=== PATIENT | female | born 1970 | race Caucasian/White ===

== ENCOUNTER 2020-08-06 09:54 | Emergency (ER) | payer OTHER ==
[2020-08-06] MEDS ORDERED: MORPHINE SULFATE 4 MG INJ IV ONE (10:21)
[2020-08-06] MEDS ORDERED: Sodium Chloride 0.9% 1000 ML 1,000 ML IV STA (10:21)
[2020-08-06] MEDS ORDERED: Zofran 4 MG/2 ML VIAL IV ONE (10:21)
[2020-08-06] MEDS ORDERED: MORPHINE SULFATE 4 MG INJ ONE (10:28)
[2020-08-06] MEDS ORDERED: Zofran 4 MG/2 ML VIAL ONE (10:28)
[2020-08-06] MEDS ORDERED: Sodium Chloride 0.9% 1000 ML 1,000 ML ONE (10:28)
--- NOTE | 2020-08-06 10:28 | ERPHSYRPT ---
- History of Present Illness Time Seen by Provider: 08/06/20 09:57 Historian: patient Exam Limitations: no limitations Patient Subjective Stated Complaint: pt here for not feeling well, she was dx with UTI last monday and was given rocephin and cipro, she has had 4 doses of cipro, she states vomiting off and on since monday, with some lose stools since starting antiboitcs Triage Nursing Assessment: pt alert, resp easy, pt moaning, skin w/d/p. face mask in place, states abd tender, she is able to keep some fluids down Physician History: 49 years old female presented in the ER with chief complaint of left flank and low back pain almost a week ago, was evaluated outpatient with a positive urinalysis for UTI, was given Rocephin shot and started on Cipro. Patient report for the last 3 to 4 days she is having increasing pain across low back with associated multiple episodes of nonprojectile, nonbilious vomiting with no hematemesis and also loose stool which she attributes to warts use of ciprofloxacin. Patient also have low-grade fever with a T-max of 101 last night with chills. Denies any history of kidney stones or pyelonephritis in the past. No vaginal bleeding or discharge. No history of recurrent UTIs. Because of gastroenteritis symptoms feels fatigued tired and dehydrated. Timing/Duration: week(s) (1), constant, gradual onset, worse Activities at Onset: rest Quality: cramping, sharpness Abdominal Pain Onset Location: suprapubic, flank Pain Radiation: back Severity of Pain-Max: severe Severity of Pain-Current: moderate Modifying Factors: Improves With: rest. Worsens With: movement, palpation, vomiting Associated Symptoms: diarrhea, nausea, vomiting Previous symptoms: no prior history Allergies/Adverse Reactions: No Known Drug Allergies Allergy (Unverified 08/06/20 10:08) Home Medications: Ciprofloxacin [Cipro 500 MG] 1 ea BID 08/06/20 [History] Hx Influenza Vaccination/Date Given: No Hx Pneumococcal Vaccination/Date Given: No Immunizations Up to Date: Yes Travel Risk - International Travel Have you traveled outside of the country in past 3 weeks: No - Coronavirus Screening Are you exhibiting any of the following symptoms?: Yes Symptoms: Vomiting/Diarrhea - Vaccine Status Have you recieved a Covid-19 vaccination: No - Review of Systems Constitutional: Fever, Chills, Weakness Eyes: No Symptoms Ears, Nose, & Throat: No Symptoms Respiratory: No Symptoms Cardiac: No Symptoms Abdominal/Gastrointestinal: Abdominal Pain, Nausea, Vomiting, Diarrhea Genitourinary Symptoms: No Symptoms Musculoskeletal: Back Pain Skin: No Symptoms Neurological: No Symptoms Psychological: No Symptoms Endocrine: No Symptoms Hematologic/Lymphatic: No Symptoms Immunological/Allergic: No Symptoms - Past Medical History Pertinent Past Medical History: No - Past Surgical History Past Surgical History: Yes Female Surgical History: Other - Social History Smoking Status: Former smoker Exposure to second hand smoke: No Drug Use: none Patient Lives Alone: No - Female History Hx Last Menstrual Period: post Hx Now: No - Nursing Vital Signs Nursing Vital Signs: Initial Vital Signs Temperature 97.8 F 08/06/20 09:59 Pulse Rate 89 08/06/20 09:59 Respiratory Rate 20 08/06/20 09:59 Blood Pressure 119/88 08/06/20 09:59 O2 Sat by Pulse Oximetry 100 08/06/20 09:59 Pain Scale Pain Intensity 3 - Physical Exam General Appearance: no apparent distress, alert Eye Exam: PERRL/EOMI, eyes nml inspection Ears, Nose, Throat Exam: normal ENT inspection, pharynx normal Neck Exam: normal inspection, non-tender, supple, full range of motion Respiratory Exam: normal breath sounds, lungs clear Cardiovascular Exam: regular rate/rhythm, normal heart sounds Gastrointestinal/Abdomen Exam: soft, normal bowel sounds, tenderness (Flank), No guarding Back Exam: normal inspection, normal range of motion, CVA tenderness Extremity Exam: normal inspection, normal range of motion Neurologic Exam: alert, oriented x 3, cooperative Skin Exam: normal color SpO2 Interpretation: normal SpO2: 100 O2 Delivery: Room Air Ordered Tests: Active Orders 24 hr Category Date Time Status IV Insertion STAT Care 08/06/20 10:21 Active NPO (ED) STAT Care 08/06/20 10:21 Active ABDOMEN AND PELVIS W CONTRAST [CT] Stat Exams 08/06/20 10:23 Completed CHEST 1 VIEW (PORTABLE) Stat Exams 08/06/20 11:38 Completed BMP Stat Lab 08/06/20 10:21 Completed CBC W DIFF Stat Lab 08/06/20 10:21 Completed LIPASE Stat Lab 08/06/20 10:21 Completed UA W/RFX UR CULTURE Stat Lab 08/06/20 10:27 Completed Medication Summary Discontinued Medications Generic Name Dose Route Start Last Admin Trade Name Ira PRN Reason Stop Dose Admin Sodium Chloride 1,000 mls @ 999 mls/hr 08/06/20 10:21 08/06/20 11:43 Sodium Chloride 0.9% 1000 Ml IV 08/06/20 11:21 Infused .Q1H1M STA Infusion Sodium Chloride Confirm 08/06/20 10:28 Sodium Chloride 0.9% 1000 Ml Administered 08/06/20 10:29 Dose 1,000 mls @ ud .ROUTE .STK-MED ONE Morphine Sulfate 4 mg 08/06/20 10:21 08/06/20 10:34 Morphine Sulfate 4 Mg Inj IV 08/06/20 10:22 4 mg STAT ONE Administration Morphine Sulfate Confirm 08/06/20 10:28 Morphine Sulfate 4 Mg Inj Administered 08/06/20 10:29 Dose 4 mg .ROUTE .STK-MED ONE Ondansetron HCl 4 mg 08/06/20 10:21 08/06/20 10:35 Zofran 4 Mg/2 Ml Vial IV 08/06/20 10:22 4 mg STAT ONE Administration Ondansetron HCl Confirm 08/06/20 10:28 Zofran 4 Mg/2 Ml Vial Administered 08/06/20 10:29 Dose 4 mg .ROUTE .STK-MED ONE Lab/Rad Data: Laboratory Result Diagrams 08/06/20 10:21 08/06/20 10:21 Laboratory Results 08/06/20 08/06/20 08/06/20 Range/Units 10:27 10:21 10:21 WBC 3.8 L (4.0-10.5) K/mm3 RBC 4.57 (4.1-5.4) M/mm3 Hgb 13.7 (12.0-16.0) gm/dl Hct 42.6 (35-47) % MCV 93.2 (78-100) fl MCH 30.0 (26-32) pg MCHC 32.2 (32-36) g/dl RDW 13.1 (11.5-14.0) % Plt Count 139 L (150-450) K/mm3 MPV 9.9 (7.5-11.0) fl Gran % 66.4 H (36.0-66.0) % Eos # (Auto) 0.01 (0-0.5) Absolute Lymphs (auto) 0.85 L (1.0-4.6) Absolute Monos (auto) 0.41 (0.0-1.3) Lymphocytes % 22.3 L (24.0-44.0) % Monocytes % 10.7 (0.0-12.0) % Eosinophils % 0.3 (0.00-5.0) % Basophils % 0.3 (0.0-0.4) % Absolute Granulocytes 2.54 (1.4-6.9) Basophils # 0.01 (0-0.4) Sodium 139 (137-145) mmol/L Potassium 3.3 L (3.5-5.1) mmol/L Chloride 103 (98-107) mmol/L Carbon Dioxide 27 (22-30) mmol/L Anion Gap 12.6 (5-15) MEQ/L BUN 15 (7-17) mg/dL Creatinine 0.91 (0.52-1.04) mg/dL Estimated GFR > 60.0 ML/MIN Glucose 116 H (74-106) mg/dL Calcium 9.0 (8.4-10.2) mg/dL Lipase 244 (23-300) U/L Urine Color YELLOW (YELLOW) Urine Appearance CLEAR (CLEAR) Urine pH 5.0 (5-6) Ur Specific [place] 1.015 (1.005-1.025) Urine Protein NEGATIVE (Negative) Urine Ketones NEGATIVE (NEGATIVE) Urine Blood NEGATIVE (0-5) Abel/ul Urine Nitrite NEGATIVE (NEGATIVE) Urine Bilirubin NEGATIVE (NEGATIVE) Urine Urobilinogen NEGATIVE (0-1) mg/dL Ur Leukocyte Esterase NEGATIVE (NEGATIVE) Urine WBC (Auto) 3-5 (0-5) /HPF Urine RBC (Auto) 0-2 (0-2) /HPF U Epithel Cells (Auto) FEW (FEW) /HPF Urine Bacteria (Auto) RARE (NEGATIVE) /HPF Urine Mucus (Auto) SLIGHT (NEGATIVE) /HPF Urine Culture Reflexed NO (NO) Urine Glucose NEGATIVE (NEGATIVE) mg/dL - Progress Progress: improved, re-examined Progress Note: 08/06/20 11:50 49 years old is evaluated for low back/flank pain with vomiting and diarrhea. She is recently being treated for UTI. Patient was concerned about getting pyelonephritis. She is given fluid bolus and morphine for symptomatic relief, on reevaluation feeling much better. Work-up showed white count of 3.8 with low platelet and lymphocytes, grossly unremarkable chemistries and negative CT abdomen pelvis. With her symptoms I am concerned that patient probably have Covid/viral syndrome causing all the symptoms as patient does not have UTI currently or it is already cured with antibiotic she is on. I have obtained x- rays chest which showed airspace disease bilaterally without effusion or consolidation. Patient is not in any distress and maintaining oxygen saturation well above 95% on room air. I have obtained Covid test and recommended p recautions to go home and return instructions were worsening which she seemed understanding. We will give her Zofran to take as needed, recommended Tylenol and avoiding ibuprofen. Counseled pt/family regarding: lab results, diagnosis, need for follow-up, rad results - Departure Departure Disposition: Home Clinical Impression: Gastroenteritis, Viral syndrome Condition: Stable Critical Care Time: No Referrals: YVON MCELROY MD [Primary Care Provider] - Follow Up with PCP/3 days Instructions: Viral Gastroenteritis, Adult (DC) Additional Instructions: Drink plenty of fluids. Take Tylenol as needed for pain. Take Zofran as needed for nausea and vomiting. Follow-up with primary care physician for reevaluation. Use contact/droplet precautions until your COVID-19 test is back. Prescriptions: Ondansetron ODT 4 MG [Zofran Odt 4 mg] 4 mg PO Q6H PRN PRN #10 tab.rapdis PRN Reason: Vomiting
[2020-08-06 10:29] LABS: Absolute Neutrophil Ct (ANC) 2.54 (1.4-6.9); BASOPHIL % 0.3 % (0.0-0.4); Basophil (Absolute #) 0.01 (0-0.4); Eosinophil % 0.3 % (0.00-5.0); Eosinophil (Absolute #) 0.01 (0-0.5); Hematocrit 42.6 % (35-47); Hemoglobin 13.7 gm/dl (12.0-16.0); Lymphocyte (Absolute #) 0.85 (1.0-4.6); Lymphocytes % 22.3 % (24.0-44.0); Mean Cell Volume 93.2 fl (78-100); Mean Corpuscular Hgb Concent. 32.2 g/dl (32-36); Mean Platelet Volume 9.9 fl (7.5-11.0); Monocyte (Absolute #) 0.41 (0.0-1.3); Monocytes % 10.7 % (0.0-12.0); Neutrophil % 66.4 % (36.0-66.0); Platelet Count 139 K/mm3 (150-450); Red Blood Count 4.57 M/mm3 (4.1-5.4); Red Cell Distribution Width 13.1 % (11.5-14.0); White Blood Count 3.8 K/mm3 (4.0-10.5)
[2020-08-06 10:34] LABS: Appearance CLEAR (CLEAR); Bacteria RARE /HPF (NEGATIVE); Bilirubin NEGATIVE (NEGATIVE); Blood NEGATIVE Ery/ul (0-5); Epithelial Cells FEW /HPF (FEW); Glucose NEGATIVE (NEGATIVE); Ketones NEGATIVE (NEGATIVE); Leukocyte Esterase NEGATIVE (NEGATIVE); Mucus SLIGHT /HPF (NEGATIVE); Nitrite NEGATIVE (NEGATIVE); Protein,Urine Dip NEGATIVE (Negative); RBC 0-2 /HPF (0-2); Specific Gravity 1.015 (1.005-1.025); Urobilinogen NEGATIVE mg/dL (0-1)
[2020-08-06 11:05] LABS: ANION GAP 12.6 MEQ/L (5-15); BLOOD UREA NITROGEN 15 mg/dL (7-17); CHLORIDE 103 mmol/L (98-107); Carbon Dioxide 27 mmol/L (22-30); Creatinine 1 0.91 mg/dL (0.52-1.04); EST GLOMERULAR FILTRATION RATE > 60.0 ML/MIN; Glucose 116 mg/dL (74-106); LIPASE 244 U/L (23-300); Potassium 3.3 mmol/L (3.5-5.1); SODIUM 139 mmol/L (137-145)
--- NOTE | 2020-08-06 11:30 | XRAY ---
Indication: Bilateral flank pain. Nausea. Pyelonephritis. Colitis. Multiple contiguous axial images obtained through the abdomen and pelvis using 80 cc Isovue 370 contrast. Comparison: None Lung bases demonstrates dependent atelectasis without infiltrate or effusion. Heart is not enlarged. Noncontrasted stomach and bowel loops nonobstructed. Normal appendix. No bowel wall thickening, colitis, or free fluid/air. Remaining liver, gallbladder, pancreas, spleen, adrenal glands, kidneys, ureters, bladder, uterus, and aorta appear unremarkable. No pathologic retroperitoneal lymphadenopathy. Osseous structures intact. No ventral or inguinal hernias. Impression: CT abdomen/pelvis with contrast exam is negative.
[2020-08-06 11:57] VITALS: O2SAT 100
--- NOTE | 2020-08-06 11:59 | XRAY ---
Indication: Flank pain. Comparison: None Portable chest demonstrates subtle hazy mid lung patchy groundglass opacities bilaterally without consolidation/large effusion. Remaining heart and bony thorax normal.
[2020-08-06 12:20] VITALS: BP 124/73; PULSE 79
== END 2020-08-06 12:20 | disposition home or self-care (01) ==
LOC: ED 09:54
DX: K52.9 Noninfective gastroenteritis and colitis, unspecified (principal); B34.9 Viral infection, unspecified
CPT/HCPCS: 36415; 71045; 74177; 80048; 81001; 83690; 85025; 96360; 96374; 96375; 99284; U0003; J2270; J2405